=== PATIENT | male | born 1955 | race Caucasian/White ===

== ENCOUNTER → 2021-08-23 07:51 | Outpatient (CLI) | payer BC, SELFPAY ==
[2021-08-23 09:02] LABS: Add Manual Diff / Slide Review NO; Basophils Absolute Auto 0 /uL (0-100); Basophils Percent Auto 0.6 % (0-2); Eosinophils Absolute Auto 100 /uL (0-450); Eosinophils Percent Auto 2.6 % (2-4); Hematocrit 45.3 % (41-53); Hemoglobin 15.6 g/dL (13.5-17.5); Lymphocytes Absolute Auto 2400 /uL (1100-4500); Lymphocytes Percent Auto 43.1 % (25-40); Mean Corpuscular HGB Conc 34.5 % (30-36); Mean Corpuscular Hemoglobin 29.1 PG (26-34); Mean Corpuscular Volume 84.4 fL (80-100); Monocytes Absolute Auto 300 /uL (0-900); Monocytes Percent Auto 6.1 % (3-14); Neutrophils Absolute Auto 2700 /uL (1500-7000); Neutrophils Percent Auto 47.6 % (50-75); Platelet Count 167 X10^3/uL (150-400); Red Blood Cell Count 5.37 X10^6/uL (4.5-5.9); Red Cell Distribution Width 13.8 % (11.6-14.8); White Blood Cell Count 5.6 X10^3/uL (4.5-11.0)
[2021-08-23 09:16] LABS: Alanine Aminotransferase 32 IU/L (<50); Albumin 4.4 g/dL (3.5-5.0); Albumin Globulin Ratio 1.9 (1.0-2.8); Alkaline Phosphatase 51 U/L (38-126); Aspartate Aminotransferase 26 IU/L (17-59); BUN Creatinine Ratio 23.2 (6-22); Blood Urea Nitrogen 22 mg/dL (9-20); Calcium 8.8 mg/dL (8.4-10.2); Carbon Dioxide 26 mmol/L (22-32); Chloride 105 mmol/L (98-107); Cholesterol 185 mg/dL (140-199); Estimated Glomerular Filt Rate > 60.0 mL/min (>60); Globulin 2.3 g/dL (1.7-4.1); Glucose 105 mg/dL (80-110); HDL Cholesterol 47 mg/dL (40-60); HEMOLYSIS < 15 (0-50); LDL Cholesterol Calculated 123 mg/dL (<100); Sodium 139 mmol/L (137-145); Total Protein 6.7 g/dL (6.3-8.2); Triglycerides 77 mg/dL (35-150)
[2021-08-23 09:47] LABS: Prostate Specific Antigen Scrn 2.44 ng/mL (0.1-4.0)
[2021-08-24 10:11] LABS: Creatinine Urine Random 63.6 mg/dL
[2021-08-24 10:16] LABS: Microalbumi Creatinin Ratio Ur 12.5 ug/mg CR (<30); Microalbumin Urine Random 0.8 mg/dL (0-1.6)
== END ==
PROVIDERS: PCP Family Medicine; Referring Provider Family Medicine; Visit Provider Family Medicine
DX: I10 Essential (primary) hypertension (principal); E78.5 Hyperlipidemia, unspecified; Z12.5 Encounter for screening for malignant neoplasm of prostate
CPT/HCPCS: 36415; 80053; 80061; 82043; 82570; 85025; G0103

== ENCOUNTER → 2022-08-25 08:32 | Outpatient (CLI) | payer MEDICARE, OTHER, SELFPAY ==
[2022-08-25 09:50] LABS: Cholesterol 123 mg/dL (140-199); HDL Cholesterol 46 mg/dL (40-60); LDL Cholesterol Calculated 67 mg/dL (<100); Triglycerides 52 mg/dL (35-150)
== END ==
PROVIDERS: PCP Family Medicine; Referring Provider Family Medicine; Visit Provider Family Medicine
DX: E78.2 Mixed hyperlipidemia (principal)
CPT/HCPCS: 36415; 80061

== ENCOUNTER → 2022-09-05 08:12 | Outpatient (CLI) | payer MEDICARE, OTHER, SELFPAY ==
[2022-09-05 09:42] LABS: Add Manual Diff / Slide Review NO; Basophils Absolute Auto 0 /uL (0-100); Basophils Percent Auto 0.3 % (0-2); Eosinophils Absolute Auto 100 /uL (0-450); Eosinophils Percent Auto 2.2 % (2-4); Hematocrit 41.9 % (41-53); Hemoglobin 14.3 g/dL (13.5-17.5); Lymphocytes Absolute Auto 2300 /uL (1100-4500); Lymphocytes Percent Auto 34.2 % (25-40); Mean Corpuscular HGB Conc 34.2 % (30-36); Mean Corpuscular Volume 84.9 fL (80-100); Monocytes Absolute Auto 400 /uL (0-900); Neutrophils Absolute Auto 3900 /uL (1500-7000); Neutrophils Percent Auto 57.3 % (50-75); Platelet Count 175 X10^3/uL (150-400); Red Blood Cell Count 4.94 X10^6/uL (4.5-5.9); Red Cell Distribution Width 13.7 % (11.6-14.8); White Blood Cell Count 6.8 X10^3/uL (4.5-11.0)
[2022-09-05 09:59] LABS: Hemoglobin A1C% w Est Avg Glu 5.3 % (4.0-6.0)
[2022-09-05 10:25] LABS: Alanine Aminotransferase 39 IU/L (<50); Albumin Globulin Ratio 1.5 (1.0-2.8); Alkaline Phosphatase 62 U/L (38-126); Aspartate Aminotransferase 29 IU/L (17-59); BUN Creatinine Ratio 21.7 (6-22); Bilirubin Total 1.1 mg/dL (0.2-1.3); Blood Urea Nitrogen 20 mg/dL (9-20); Calcium 8.8 mg/dL (8.4-10.2); Carbon Dioxide 31 mmol/L (22-32); Chloride 100 mmol/L (98-107); Cholesterol 130 mg/dL (140-199); Estimated Glomerular Filt Rate > 60 mL/min (>60); Globulin 2.7 g/dL (1.7-4.1); Glucose 107 mg/dL (80-110); HDL Cholesterol 44 mg/dL (40-60); HEMOLYSIS < 15 (0-50); LDL Cholesterol Calculated 76 mg/dL (<100); Potassium 4.2 mmol/L (3.4-5.1); Sodium 138 mmol/L (137-145); Total Protein 6.7 g/dL (6.3-8.2); Triglycerides 51 mg/dL (35-150); Uric Acid 6.9 mg/dL (3.5-8.5); VLDL Cholesterol Calculated 10 mg/dL (2-30); Vitamin D 25 Hydroxy (D3) 95.8 ng/mL (30.0-100.0)
[2022-09-05 10:28] LABS: High Sensitivity CRP - Cardiac 2.7 mg/L (1.0-3.0)
[2022-09-07 07:53] LABS: Insulin Level Total 10.3 uIU/mL (2.6-24.9)
== END ==
PROVIDERS: PCP Family Medicine; Referring Provider Family Medicine; Visit Provider Family Medicine
DX: E78.2 Mixed hyperlipidemia (principal); I10 Essential (primary) hypertension; D04.5 Carcinoma in situ of skin of trunk; G47.30 Sleep apnea, unspecified; J45.20 Mild intermittent asthma, uncomplicated; Z97.3 Presence of spectacles and contact lenses
CPT/HCPCS: 36415; 80053; 80061; 82306; 83036; 83525; 84550; 85025; 86140

== ENCOUNTER 2023-04-18 06:25 | Day surgery (SDC) | payer MEDICARE, OTHER, SELFPAY ==
--- NOTE | 2023-04-18 | PATH_ITS ---
[facility] Accession Number: [id number] No. of containers..01 Tissue . 01 Material submitted: . colon - CECAL POLYP . 01 Diagnosis: Cecum, Polypectomy: Sessile serrated adenoma with cytological dysplasia. Additional levels were examined. No evidence of invasive carcinoma. Please see comment. MRV 04/24/2023 1812 Local . 01 Comment: Current surveillance guideles recommend that a sessile serrated adenoma with cytological dysplasia should be treated similar to an advanced adenoma. Complete polypectomy and shortened surveillance interval are recommended. . Dr. Ortiz also reviewed this case and agrees there is no evidence of malignancy. . 01 Electronically signed: . Caryn Guadarrama MD, Pathologist NPI- [id number] . 01 Gross description: . CECAL POLYP: Received in formalin are 2 fragment(s) of ardon, soft tissue measuring 0.6 x 0.5 x 0.2 cm to 1.0 x 0.6 x 0.4 cm submitted entirely in 1 cassette(s) /DANNA 04/20/2023 0025 Local . 01 Pathologist provided ICD-10: D12.0 . 01 CPT . 333944 Specimen Comment: A courtesy copy of this report has been sent to [phone] Performed at: 01 [facility] [address] [place] [address] [address], [place], [place] [id number] MD Jared Small MD Phone: [phone]
[2023-04-18 07:10] VITALS: BMI 30.5
[2023-04-18 07:17] VITALS: BP 158/90; PULSE 76; RESP 16; TEMP 36.3; O2SAT 96
[2023-04-18] MEDS: LACTATED RINGERS 1,000 ML 100 ML IV (07:20)
--- NOTE | 2023-04-18 07:39 | P.HP_ITS ---
History of Present Illness History of Present Illness Date Patient Seen: 04/18/23 Time Patient Seen: 07:39 Chief complaint: Screening Colonoscopy Narrative: Last colonoscopy over 8 years ago. Had a flex sig in his early 40's and told there was a polyp. No family history for colon cancer. 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 Wears glasses Surgical History Anesthesia History of tonsillectomy and adenoidectomy (~1964) Family History Father History of heart disease Hypertension Mental health problem Stroke Mother History of heart disease Hypertension Grandfather History of heart disease Hypertension Stroke Grandmother History of heart disease Grandfather History of heart disease Grandmother History of heart disease Social History household members: spouse Smoking Status: Never smoker alcohol intake: current Meds Home Medications and Allergies Home Medications Medication Instructions Recorded Confirmed Type lisinopril 20 mg tablet 20 mg PO DAILY #90 tabs 05/19/22 04/18/23 Rx montelukast 10 mg tablet 10 mg PO DAILY #90 tabs 12/19/22 04/18/23 Rx atorvastatin 20 mg tablet See Rx Instructions .Route 03/13/23 04/18/23 Rx .COMPLEX #90 tabs Allergies Allergy/AdvReac Type Severity Reaction Status Date / Time No Known Drug Allergies Allergy Verified 04/18/23 07:09 Review of Systems Review of Systems ROS: Yes All systems reviewed with the patient and are negative except as otherwise documented Exam Vital Signs (past 8 hours): - 04/18/23 07:17 Temperature 97.3 F L Pulse Rate 76 Respiratory Rate 16 Blood Pressure 158/90 H Pulse Oximetry 96 Oxygen Delivery Method Room Air Oxygen Delivery Method Room Air Const General: cooperative, healthy appearing and comfortable Nutritional Appearance: average body habitus HENMT Head: normocephalic and atraumatic Ears: hearing grossly normal bilaterally Eyes General: appearance normal, both eyes and all related structures Sclera: sclerae normal Neck Neck: trachea midline Resp Effort & Inspection: normal respiratory effort and able to speak in complete sentences Cardio Rate: regular rate Rhythm: regular rhythm GI Palpation: soft Skin General: turgor normal Neuro General: patient alert, patient awake and patient oriented x3 Cognition: normal cognition Psych Mental Status: mental status grossly normal Judgment: judgment good Assessment & Plan Assessment & Plan narrative: Screening for colon cancer Plan: colonoscopy with anesthesia
--- NOTE | 2023-04-18 08:11 | PM.OP.COLON ---
Operative Date/Time/Diagnoses Date of procedure: 04/18/23 Time of procedure: 08:11 Pre-op diagnosis: Colon cancer screening Post-op diagnosis: same Procedure & Clinicians Study performed: Colonoscopy with MAC Same procedure as scheduled: Yes Indications: Colon cancer screening Surgeon: Aurea Lees Procedure Notes Procedure in detail: Preop diagnosis: Colon cancer screening Postop diagnosis: Same Operative procedure: Colonoscopy with cold snare biopsy Surgeon: Stephy Lees MD Anesthetic: Mac Findings: Possible sessile polyp 4 mm in size at terminal ileum taken with a cold snare, await path report to determine frequency of colonoscopies. Severe large diverticuli of the entire descending colon and a portion of distal transverse Procedure: Patient placed in lateral position. Rectal exam performed showing normal tone no masses. Colonoscope inserted into the rectum and advanced to ileocecal valve with minimal difficulty. Insufflation extraction scope and the above findings. Impression: Severe diverticulosis of the descending colon and portion of the distal transverse. Possible sessile polyp in the cecum taken with a cold snare. Plan: We will need to await final pathology determined frequency of screening colonoscopies for this gentleman. Home with information about diverticulosis. Findings: divertiulosis Specimen(s): other (Sessile cecal abnormality possible polyp, 4 mm in size) Complications: none Post-procedure Recommendations: Will call with biopsy results Plan for aftercare: Await pathology to determine the frequency of future colonoscopies Follow up: as needed Disposition: PACU
[2023-04-18 08:14] VITALS: BP 124/69; PULSE 77; RESP 19; TEMP 36.8; O2SAT 97
[2023-04-18 08:18] VITALS: BP 127/87; PULSE 85; RESP 14; O2SAT 96
[2023-04-18 08:26] VITALS: BP 122/68; PULSE 68; RESP 15; TEMP 36.6; O2SAT 96
--- NOTE | 2023-04-18 08:36 | SUR.PHASEII ---
pt at dentist. will call back when she is done and discharge patient then. All belongings with patient. Instructions gone over, denies n/v, pain.
--- NOTE | 2023-04-18 08:55 | SUR.PHASEI ---
Patient reported difficulty articulating words in phase I. Speech sounded normal. Moving extremities normally. Patient currently stated the sensation has resolved.
--- NOTE | 2023-04-18 09:11 | SUR.PHASEI ---
Dr. Cheng notified of patient's articulation complaint. No new orders.
== END 2023-04-18 09:03 | disposition home or self-care (01) ==
PROVIDERS: Surgery; PCP Family Medicine; Referring Provider Surgery; Visit Provider Surgery
PROC: 0DJD8ZZ Inspection of Lower Intestinal Tract, Via Natural or Artificial Opening Endoscopic (ICD-10-PCS; CPT 45378; principal; 2023-04-18 07:45)
DX: Z12.11 Encounter for screening for malignant neoplasm of colon (principal); K57.90 Diverticulosis of intestine, part unspecified, without perforation or abscess without bleeding; D12.0 Benign neoplasm of cecum; J45.909 Unspecified asthma, uncomplicated; I10 Essential (primary) hypertension
CPT/HCPCS: 45385; J2704

== ENCOUNTER 2023-07-04 12:05 | Day surgery (SDC) | payer MEDICARE, OTHER, SELFPAY ==
--- NOTE | 2023-07-04 | PATH_ITS ---
[facility] Accession Number: [id number] No. of containers..01 Tissue . 01 Material submitted: . colon - ASCENDING COLON POLYP . 01 Diagnosis: COLON, ASCENDING, POLYP BIOPSY: - TUBULOVILLOUS ADENOMA. TXN 07/07/2023 1033 Local . 01 Electronically signed: . Mellissa Ryan MD, Pathologist NPI- [id number] . 01 Gross description: . ASCENDING COLON POLYP: Received in formalin is 1 fragment(s) of ardon, soft tissue measuring 0.3 x 0.2 x 0.2 cm submitted entirely in 1 cassette(s) /AAY 07/06/2023 0526 Local . 01 Pathologist provided ICD-10: Z12.11 . 01 CPT . 693083 Specimen Comment: A courtesy copy of this report has been sent to [phone] Performed at: 01 [facility] [address] [place] [address], [place], [place] [id number] MD Jared Small MD Phone: [phone]
[2023-07-04 12:32] VITALS: BMI 29.0
[2023-07-04 12:38] VITALS: BP 152/85; PULSE 73; RESP 16; TEMP 36.5; O2SAT 96
[2023-07-04] MEDS: LACTATED RINGERS 1,000 ML 42 ML IV (12:47)
--- NOTE | 2023-07-04 13:16 | P.HP_ITS ---
History of Present Illness History of Present Illness Date Patient Seen: 07/04/23 Time Patient Seen: 13:16 Chief complaint: Dx Colonoscopy w/poss bx Narrative: 67-year-old man with history of a cecal sessile serrated adenoma with dysplasia. Screening colonoscopy April 2022 performed at [facility] demonstrated a cecal polyp which was removed with cold snare resulting pathology shows cytological dysplasia without invasive malignancy. He is here today for a surveillance colonoscopy to ensure complete excision of the lesion. Please refer to the H and P from May 2023 for further detail. 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 Wears glasses Surgical History Anesthesia History of tonsillectomy and adenoidectomy (~1964) Family History Father History of heart disease Hypertension Mental health problem Stroke Mother History of heart disease Hypertension Grandfather History of heart disease Hypertension Stroke Grandmother History of heart disease Grandfather History of heart disease Grandmother History of heart disease Social History household members: spouse Smoking Status: Never smoker alcohol intake: current Meds Home Medications and Allergies Home Medications Medication Instructions Recorded Confirmed Type montelukast 10 mg tablet 10 mg PO DAILY #90 tabs 12/19/22 07/04/23 Rx atorvastatin 20 mg tablet See Rx Instructions .Route 03/13/23 07/04/23 Rx .COMPLEX #90 tabs lisinopril 20 mg tablet 20 mg PO DAILY #90 tabs 05/24/23 07/04/23 Rx Allergies Allergy/AdvReac Type Severity Reaction Status Date / Time No Known Drug Allergies Allergy Verified 07/04/23 12:26 Exam Vital Signs (past 8 hours): - 07/04/23 12:38 Temperature 97.7 F Pulse Rate 73 Respiratory Rate 16 Blood Pressure 152/85 H Pulse Oximetry 96 Oxygen Delivery Method Room Air Oxygen Delivery Method Room Air Narrative Exam Narrative: General adult man alert oriented no acute distress Assessment & Plan Assessment and plan (1) Sessile serrated polyp of colon: Status: Acute Assessment & Plan narrative: 67-year-old man history of a sessile serrated polyp with dysplasia here for surveillance colonoscopy. Technical details were discussed. Risks, benefits, alternatives explained. Risks including but not limited to myocardial infarction, aspiration, bleeding, pain, missed lesion, incomplete examination, need for further radiographic studies, colonic perforation, and need for major abdominal surgery were discussed. All questions were answered to their satisfaction, and they are in agreement with this plan.
--- NOTE | 2023-07-04 13:55 | P.OP.COLON_ITS ---
Operative Date/Time/Diagnoses Date of procedure: 07/04/23 Time of procedure: 13:55 Pre-op diagnosis: History of sessile serrated adenoma with cytological dysplasia Post-op diagnosis: same Procedure & Clinicians Study performed: Colonoscopy and polypectomy Same procedure as scheduled: Yes Indications: 67-year-old man underwent a screening colonoscopy 2 months ago and a polyp within the ascending colon was removed. Pathology later demonstrated this to be a sessile serrated adenoma with cytological dysplasia and he is here for a surveillance colonoscopy. Surgeon: Edison Clark Procedure Notes Procedure in detail: The history and physical was performed/updated and the patient is ASA class is 2. . The procedure was discussed in detail with the patient. Potential risks complications including infection, bleeding, missed diagnosis, perforation, need for surgery, and were explained. Their questions were answered and informed consent was obtained. Patient was brought to the procedure room and placed standard monitoring equip ment. The patient's vital signs were monitored continuously throughout the entire procedure. Prior to starting time-out was performed. The patient was placed in the left lateral recumbent position. Procedural sedation was administered by anesthesia. Examination began with a thorough inspection of the perianal area there was no evidence of fissures, fistulae, external hemorrhoids or cutaneous malignancy. The colonoscopy scope was then placed into the anal canal and was advanced to the cecum, which was identified by the ileocecal valve, the appendiceal orifice and the confluence of the taenia. The scope was then slowly withdrawn examining colon thoroughly in all directions, irrigating it of any residual stool. Within the ascending colon a few cm distal to the ileocecal valve the remnant of the previous polyp was identified. Polyp is flat and sitting on a ridge of mucosa. Tattoo was injected into the submucosa distal to the lesion. The size of the lesion that remains is approximately 3 mm and was removed with cold snare. The remainder of the colon was remarkable only for diverticular disease. The patient tolerated the procedure well. They will be discharged once criteria are met. The prep was of good/excellent quality. The withdrawl time was 11 minutes. Specimen(s): other (Ascending colon polyp) Impression: Colonic polyp x1 Post-procedure Plan for aftercare: Follow-up with general surgery clinic in 2 weeks time for discussion of pathology and next steps Disposition: same day surgery
[2023-07-04 13:57] VITALS: BP 110/74; PULSE 70; RESP 16; TEMP 36.1; O2SAT 93
[2023-07-04 14:02] VITALS: BP 116/75; PULSE 69; RESP 16; O2SAT 92
[2023-07-04 14:07] VITALS: BP 116/75; PULSE 75; RESP 17; O2SAT 96
[2023-07-04 14:12] VITALS: BP 130/81; PULSE 77; RESP 18; O2SAT 96
[2023-07-04 14:18] VITALS: BP 130/80; PULSE 70; RESP 14; TEMP 36.3; O2SAT 95
== END 2023-07-04 14:57 | disposition home or self-care (01) ==
PROVIDERS: PCP Family Medicine; Referring Provider Surgery; Visit Provider Surgery
PROC: 0DJD8ZZ Inspection of Lower Intestinal Tract, Via Natural or Artificial Opening Endoscopic (ICD-10-PCS; CPT 45378; principal; 2023-07-04 13:00)
DX: Z12.11 Encounter for screening for malignant neoplasm of colon (principal); D12.2 Benign neoplasm of ascending colon
CPT/HCPCS: 45385; 45381; J2704